=== PATIENT | female | born 1980 | race Caucasian/White ===

== ENCOUNTER 2016-06-28 17:17 | Emergency (ER) | payer OTHER, BC ==
[~2016-06-28] VITALS: Ht 162.6 cm; Wt 75.0 kg
[2016-06-28 17:19] VITALS: BP 132/75; PULSE 115; RESP 15; TEMP 98.1; O2SAT 99
[2016-06-28] MEDS ORDERED: paxil (17:39)
--- NOTE | 2016-06-28 17:59 | PD ---
HPI . Syncope Chief Complaint: Syncope/Near-Syncope Time Seen by Provider: 17:43 Travel History International Travel<30 days: No Contact w/Intl Traveler<30days: No Traveled to known affect area: No History of Present Illness HPI Patient presents for evaluation status post a syncopal event. She works here in the nursery. She was running to a precipitous delivery in the parking lot at the entrance to the [employer]. She states that she started feeling faint and subsequently passed out. She states she landed on her left knee. She also probably twisted her right ankle and her right back. She states that she now has a mild headache. Denies any associated chest pain or palpitations at the time of the syncope. She does report a previous similar history but states it has been many years ago. [facility] Past Medical History Medical History: Denies Significant Hx Influenza Vaccination: Yes ?: Not LMP: 06/2016 Past Surgical History Other Surgery: Yes (hernia repair, mass removal , breast augmentation adn lift ) Social History Alcohol Use: No Tobacco Use: No Substance Use: No Allergies-Medications (Allergen,Severity, Reaction): Coded Allergies: No Known Allergies (Unverified , 06/28/16) Reported Meds & Prescriptions Reported Meds & Active Scripts Active Reported [paxil] Review of Systems Except as stated in HPI: all other systems reviewed are Neg HENT: Positive: Headaches Cardiovascular: No: Chest Pain or Discomfort, Palpitations Respiratory: No: Shortness of Breath Musculoskeletal: Positive: Arthralgias Skin: Positive Change in Pigmentation Neurologic: Positive: Dizziness Physical Exam Narrative GENERAL: Awake and alert and in no acute distress. SKIN: Warm and dry. Contusion, left knee. HEAD: Atraumatic. Normocephalic. EYES: Pupils equal and round. ENT: No nasal bleeding or discharge. Mucous membranes pink and moist. NECK: Trachea midline. Neck supple. CARDIOVASCULAR: Regular rate and rhythm. Heart sounds normal. RESPIRATORY: No accessory muscle use. Lungs are clear throughout. GASTROINTESTINAL: Abdomen soft, non-tender, nondistended. MUSCULOSKELETAL: No obvious deformities. No edema. She is able to walk without any difficulty. She has no point tenderness right ankle. She has no point tenderness in the right low back. NEUROLOGICAL: Awake and alert. No obvious cranial nerve deficits. Motor grossly within normal limits. Normal speech. PSYCHIATRIC: Appropriate mood and affect; insight and judgment normal. Data Data Last Documented VS Vital Signs Date Time Temp Pulse Resp B/P Pulse Ox O2 Delivery O2 Flow Rate FiO2 06/28/16 18:14 99 Room Air 06/28/16 17:19 98.1 115 15 132/75 Orders Electrocardiogram (06/28/16 17:52) Basic Metabolic Panel (Bmp) (06/28/16 17:52) Ed Urine Pregnancytest Poc (06/28/16 17:52) Complete Blood Count With Diff (06/28/16 17:52) Ckmb (Isoenzyme) Profile (06/28/16 17:52) Troponin I (06/28/16 17:52) Ecg Monitoring (06/28/16 17:52) Iv Access Insert/Monitor (06/28/16 17:52) Oximetry (06/28/16 17:52) Sodium Chloride 0.9% Flush (Ns Flush) (06/28/16 18:00) Ibuprofen (Motrin) (06/28/16 18:00) CKMB (06/28/16 18:15) CKMB% (06/28/16 18:15) Labs Laboratory Tests Test 06/28/16 18:15 White Blood Count 9.1 TH/MM3 Red Blood Count 3.93 MIL/MM3 Hemoglobin 11.7 GM/DL Hematocrit 35.5 % Mean Corpuscular Volume 90.4 FL Mean Corpuscular Hemoglobin 29.8 PG Mean Corpuscular Hemoglobin 33.0 % Concent Red Cell Distribution Width 13.9 % Platelet Count 286 TH/MM3 Mean Platelet Volume 8.3 FL Neutrophils (%) (Auto) 66.5 % Lymphocytes (%) (Auto) 25.6 % Monocytes (%) (Auto) 4.9 % Eosinophils (%) (Auto) 2.0 % Basophils (%) (Auto) 1.0 % Neutrophils # (Auto) 6.1 TH/MM3 Lymphocytes # (Auto) 2.3 TH/MM3 Monocytes # (Auto) 0.4 TH/MM3 Eosinophils # (Auto) 0.2 TH/MM3 Basophils # (Auto) 0.1 TH/MM3 CBC Comment DIFF FINAL Differential Comment Sodium Level 138 MEQ/L Potassium Level 4.0 MEQ/L Chloride Level 106 MEQ/L Carbon Dioxide Level 24.7 MEQ/L Anion Gap 7 MEQ/L Blood Urea Nitrogen 17 MG/DL Creatinine 0.86 MG/DL Estimat Glomerular Filtration 75 ML/MIN Rate Random Glucose 95 MG/DL Calcium Level 8.1 MG/DL Total Creatine Kinase 115 U/L Creatine Kinase MB 0.7 NG/ML Troponin I LESS THAN 0.02 NG/ML MDM Medical Decision Making Medical Screen Exam Complete: Yes Emergency Medical Condition: Yes Interpretation(s) EKG shows a normal sinus rhythm with no acute ischemic change. Differential Diagnosis My differential diagnosis of syncope includes but is not limited to cardiac arrhythmia, hypovolemia, anemia, neurological catastrophe, vasovagal response Narrative Course Patient presents to us for evaluation of syncope and injury sustained as a result of syncope. It sounds like she probably had a vasovagal reaction. She does not believe that she needs to have any x-rays her injuries. I agree. She is ambulatory without any difficulty. CBC & BMP Diagram 06/28/16 18:15 CK and troponin are normal. Diagnosis Primary Impression: Syncope Qualified Code: R55 - Vasovagal syncope Additional Impressions: Contusion of left knee, initial encounter Low back strain Qualified Code: S39.012A - Low back strain, initial encounter Right ankle sprain Qualified Code: S93.401A - Sprain of right ankle, unspecified ligament, initial encounter Patient Instructions: General Instructions, Syncope (ED) Med/Other Pt SpecificInfo: Prescription(s) given Scripts Cyclobenzaprine (Flexeril)10 Mg Tab10 Mg PO TID #15 TAB Ref 0 Prov:Alyson Easley MD 06/28/16 Ibuprofen 800 Mg [id number] Mg PO Q8H PRN (pain) #30 TAB Ref 0 Prov:Alyson Easley MD 06/28/16 Disposition: 01 DISCHARGE HOME Condition: Stable Alyson Easley MD Jun 28, 2016 17:59
[2016-06-28] MEDS ORDERED: SODIUM CHLORIDE 0.9% FLUSH 5 ML FLUSH IVF PRN (18:00)
[2016-06-28] MEDS ORDERED: IBUPROFEN 800 MG TAB PO ONE (18:00)
[2016-06-28 18:14] VITALS: O2SAT 99
[2016-06-28 18:33] LABS: AUTOMATED NEUTROPHIL # 6.1 TH/MM3 (1.8-7.7); BASOPHIL # 0.1 TH/MM3 (0-0.2); EOSINOPHIL # 0.2 TH/MM3 (0-0.4); HEMATOCRIT 35.5 % (35.0-46.0); HEMO FLAGS DIFF FINAL; LYMPH % 25.6 % (9.0-44.0); LYMPHOCYTE # 2.3 TH/MM3 (1.0-4.8); MEAN CELL VOLUME 90.4 FL (80.0-100.0); MEAN CORPUSCULAR HEMOGLOBIN 29.8 PG (27.0-34.0); MONO % 4.9 % (0.0-8.0); NEUT % 66.5 % (16.0-70.0); PLATELET COUNT 286 TH/MM3 (150-450); RED BLOOD COUNT 3.93 MIL/MM3 (4.00-5.30); RED CELL DISTRIBUTION WIDTH 13.9 % (11.6-17.2); WHITE BLOOD COUNT 9.1 TH/MM3 (4.0-11.0)
[2016-06-28 18:47] LABS: ANION GAP 7 MEQ/L (5-15); BICARBONATE 24.7 MEQ/L (21.0-32.0); BLOOD UREA NITROGEN 17 MG/DL (7-18); CHLORIDE 106 MEQ/L (98-107); GLOMERULAR FILTRATION RATE 75 ML/MIN (>89); SODIUM (NA) 138 MEQ/L (136-145)
[2016-06-28 18:51] LABS: CREATINE KINASE 115 U/L (26-192)
[2016-06-28 19:04] LABS: CKMB 0.7 NG/ML (0.5-3.6)
[2016-06-28] MEDS ORDERED: IBUP800T23 PO (19:15)
[2016-06-28] MEDS ORDERED: CYCL1TAB29 PO (19:15)
--- NOTE | 2016-06-29 17:18 | EKG ---
Date Performed: 06/28/2016 Time Performed: 18:17:03 PTAGE: 35 years EKG: Sinus rhythm NORMAL ECG NO PREVIOUS TRACING DOCTOR: Maria Kim Interpretating Date/Time 06/29/2016 17:15:16
== END 2016-06-28 20:40 | disposition home or self-care (01) ==
LOC: NEPA 17:17
DX: R55 Syncope and collapse (principal); S80.02XA Contusion of left knee, initial encounter; S39.012A Strain of muscle, fascia and tendon of lower back, initial encounter; S93.401A Sprain of unspecified ligament of right ankle, initial encounter; R51 Headache; W18.39XA Other fall on same level, initial encounter; Y92.238 Other place in hospital as the place of occurrence of the external cause; Y99.0 Civilian activity done for income or pay
CPT/HCPCS: 80048; 82550; 82552; 84484; 85025; 93005